=== PATIENT | female | born 1985 | race Caucasian/White ===

== ENCOUNTER 2016-06-30 01:52 | Inpatient (IN) | payer BC ==
[~2016-06-30] VITALS: Ht 170.2 cm; Wt 90.0 kg
[2016-06-30] MEDS ORDERED: LIDOCAINE 1%, 20ML ONE (02:52)
[2016-06-30] MEDS ORDERED: NEWBORN KIT ONE ×2 (02:53→03:21)
[2016-06-30] MEDS ORDERED: OXYTOCIN 30U/ 0.9% NaCL 500ML 500 ML ONE (02:53)
[2016-06-30] MEDS ORDERED: MISOPROSTOL 200 MCG TABLET ONE (02:53)
[2016-06-30] MEDS ORDERED: OXYTOCIN 30U/ 0.9% NaCL 500ML 500 ML IV ONE (03:11)
[2016-06-30] MEDS ORDERED: OXYTOCIN 30U/ 0.9% NaCL 500ML 500 ML IV PRN (03:11)
[2016-06-30] MEDS ORDERED: D5%-LACTATED RINGERS 1,000 ML IV SCH (03:11)
[2016-06-30] MEDS: LACTATED RINGERS 1,000 ML IV SCH ×2 (03:16→04:10)
[2016-06-30] MEDS ORDERED: FENTANYL PF 100 MCG/2ML ONE (03:28)
[2016-06-30] MEDS ORDERED: FENTANYL PF 100 MCG/2ML IVPush PRN (03:30)
[2016-06-30] MEDS ORDERED: ONDANSETRON 2MG/ML, 2ML IVPush PRN (03:30)
[2016-06-30] MEDS ORDERED: LIDOCAINE/PF 1.5%-EPI 1:200K, 30ML ONE (04:14)
[2016-06-30] MEDS ORDERED: FENTANYL/BUPIV./NS/PF 250 ML EPIDCONT ONE (04:16)
[2016-06-30] MEDS ORDERED: OXYcodone/APAP 5/325MG TABLET ONE (06:25)
[2016-06-30] MEDS ORDERED: IBUPROFEN 600 MG TABLET ONE (06:26)
[2016-06-30] MEDS ORDERED: HYDROcodone/APAP 5/325 TABLET PO PRN (06:30)
[2016-06-30] MEDS ORDERED: METHYLERGONOVINE 0.2 MG/ML IM PRN (06:30)
[2016-06-30] MEDS ORDERED: CALCIUM CARBONATE 500 MG TAB.CHEW PO PRN (06:30)
[2016-06-30] MEDS ORDERED: ONDANSETRON 2MG/ML, 2ML IV PRN (06:30)
[2016-06-30] MEDS ORDERED: MISOPROSTOL 200 MCG TABLET PR PRN (06:30)
[2016-06-30] MEDS ORDERED: CARBOPROST TROMETHAMINE 250 MCG/ML, 1ML IM PRN (06:30)
[2016-06-30] MEDS: OXYTOCIN 30U/ 0.9% NaCL 500ML 500 ML IV SCH ×2 (06:35→16:17)
[2016-06-30] MEDS: OXYcodone/APAP 5/325MG TABLET PO PRN ×2 (06:35→23:21)
[2016-06-30] MEDS: IBUPROFEN 600 MG TABLET PO PRN ×3 (06:35→23:21)
[2016-06-30 09:00] VITALS: BP 105/61
[2016-06-30 11:46] VITALS: BP 108/59
[2016-06-30] MEDS: PRENATAL VIT/IRON/FA 1 EACH TABLET PO SCH (13:08)
[2016-06-30 19:30] VITALS: BP 114/74
[2016-06-30] MEDS: DOCUSATE 100 MG CAPSULE PO PRN (23:21)
[2016-07-01] MEDS: OXYTOCIN 30U/ 0.9% NaCL 500ML 500 ML IV SCH (02:17)
[2016-07-01 05:15] VITALS: BP 121/74
[2016-07-01] MEDS: OXYcodone/APAP 5/325MG TABLET PO PRN (05:33)
[2016-07-01] MEDS: IBUPROFEN 600 MG TABLET PO PRN ×2 (05:33→14:54)
[2016-07-01] MEDS: PRENATAL VIT/IRON/FA 1 EACH TABLET PO SCH (08:49)
[2016-07-01] MEDS: DOCUSATE 100 MG CAPSULE PO PRN (08:49)
[2016-07-01 08:50] VITALS: BP 107/64
[2016-07-01] MEDS ORDERED: HYDR-3240 PO (16:05)
[2016-07-01] MEDS ORDERED: IBUP200T48 PO (16:06)
== END 2016-07-01 18:30 | disposition home or self-care (01) | DRG 775 ==
LOC: LDOP 01:52 → LDIP 03:10 → 2NW 07:22
PROVIDERS: ADMIT Obstetrics & Gynecology; ATTEND Obstetrics & Gynecology
PROC: 10E0XZZ Delivery of Products of Conception, External Approach (ICD-10-PCS; principal; 2016-06-30)
PROC: 00HU33Z Insertion of Infusion Device into Spinal Canal, Percutaneous Approach (ICD-10-PCS; 2016-06-30)
PROC: 3E0R3CZ (ICD-10-PCS; 2016-06-30)
DX: O66.0 Obstructed labor due to shoulder dystocia (principal); O99.02 Anemia complicating childbirth; D64.9 Anemia, unspecified; Z37.0 Single live birth; Z3A.38 38 weeks gestation of pregnancy
CPT/HCPCS: 36415; 82803; 82962; 85025; 86850; 86900; J3010; J3490; J2590; J7120; J7121

== ENCOUNTER 2016-09-29 07:12 | Day surgery (SDC) | payer BC ==
[~2016-09-29] VITALS: Ht 165.1 cm; Wt 79.1 kg
[~2016-09-29 07:12] MED LIST: HYDR-3240 PO; IBUP200T48 PO; NONE PER PT
[2016-09-29 08:06] VITALS: BP 116/77
[2016-09-29] MEDS ORDERED: SILVER NITRATE STICK TP ONE (08:15)
[2016-09-29] MEDS ORDERED: BUPIVACAINE/PF 0.25% ONE (08:15)
[2016-09-29] MEDS ORDERED: EPINEPHRINE 1 MG/ML, 1ML ONE (08:15)
[2016-09-29] MEDS ORDERED: FENTANYL PF 250 MCG/5ML ONE (08:52)
[2016-09-29] MEDS ORDERED: MIDAZOLAM 1 MG/ML, 2ML ONE (08:52)
[2016-09-29] MEDS ORDERED: ACETAMINOPHEN 325 MG TABLET PO PRN (09:00)
[2016-09-29] MEDS ORDERED: OXYcodone 5 MG/5 ML ORAL.SOL UDC PO PRN (09:00)
[2016-09-29] MEDS ORDERED: LABETALOL 5MG/ML, 20ML IV PRN (09:00)
[2016-09-29] MEDS ORDERED: MEPERIDINE/PF 25MG/0.5ML IVPush PRN (09:00)
[2016-09-29] MEDS ORDERED: HYDROmorphone 1 MG/ML, 1ML IV PRN (09:00)
[2016-09-29] MEDS ORDERED: MIDAZOLAM 1 MG/ML, 2ML IV PRN (09:00)
[2016-09-29] MEDS ORDERED: ONDANSETRON 2MG/ML, 2ML IVPush PRN (09:00)
[2016-09-29] MEDS ORDERED: PROMETHAZINE 25 MG/ML, 1ML IV PRN (09:00)
[2016-09-29] MEDS ORDERED: ALBUTEROL/IPRATROPIUM 2.5MG/0.5MG, 3 ML NPPB PRN (09:00)
[2016-09-29] MEDS ORDERED: FENTANYL PF 100 MCG/2ML IV PRN (09:00)
[2016-09-29] MEDS ORDERED: CEFAZOLIN 1,000 MG ONE (09:05)
[2016-09-29] MEDS ORDERED: NEOSTIGMINE 1 MG/ML, 10ML ONE (09:05)
[2016-09-29] MEDS ORDERED: DEXAMETHASONE 4 MG/ML, 1ML ONE (09:05)
[2016-09-29] MEDS ORDERED: KETOROLAC 30 MG/1 ML ONE (09:05)
[2016-09-29] MEDS ORDERED: GLYCOPYRROLATE 0.2MG/1ML ONE (09:05)
[2016-09-29] MEDS ORDERED: ROCURONIUM 10 MG/ML ONE (09:05)
[2016-09-29] MEDS ORDERED: SUCCINYLCHOLINE 20 MG/ML, 10ML ONE (09:05)
[2016-09-29] MEDS ORDERED: METOCLOPRAMIDE 5 MG/ML, 2ML ONE (09:05)
[2016-09-29] MEDS ORDERED: PROPOFOL 10 MG/ML, 20ML ONE (09:05)
[2016-09-29] MEDS ORDERED: ONDANSETRON 2MG/ML, 2ML ONE (09:05)
[2016-09-29] MEDS ORDERED: CEFAZOLIN PMX 1GM/50ML 50 ML IVPB ONE (09:30)
[2016-09-29] MEDS ORDERED: BUPIVACAINE/PF-EPI 0.25% 1:200K INFIL ONE (09:30)
[2016-09-29] MEDS ORDERED: OXYcodone 5 MG/5 ML ORAL.SOL UDC ONE (10:20)
[2016-09-29] MEDS ORDERED: OXYC-302 PO (11:27)
[2016-09-29] MEDS ORDERED: DOCU-30 PO (11:29)
[2016-09-29] MEDS ORDERED: IBUP-1222 PO (11:29)
[2016-09-29] MEDS ORDERED: KETOROLAC 30 MG/1 ML IV PRN (11:30)
[2016-09-29] MEDS ORDERED: HYDROcodone/APAP 7.5-325MG/15ML UDC PO PRN (11:30)
[2016-09-29] MEDS ORDERED: OXYcodone/APAP 5/325MG TABLET PO PRN (11:30)
[2016-09-29] MEDS ORDERED: morphine SULFATE 10 MG/ML, 1ML IV PRN (11:30)
[2016-09-29] MEDS ORDERED: IBUPROFEN 600 MG TABLET PO SCH (16:00)
== END 2016-09-29 13:05 | disposition home or self-care (01) ==
LOC: OR 07:12 → 4NOR 07:20 → OR 13:05
PROVIDERS: ATTEND Obstetrics & Gynecology
DX: Z30.2 Encounter for sterilization (principal)
CPT/HCPCS: 36415; 58661; 84703; 85025; 88302; J0171; J0330; J0690; J1100; J1885; J2250; J2405; J2704; J2710; J2765; J3010; J3490